=== PATIENT | female | born 1970 | race Caucasian/White ===

== ENCOUNTER → 2016-11-30 | Outpatient (CLI) | payer MEDICAID ==
--- NOTE | 2016-11-30 12:57 | MA ---
Diagnostic Digital Mammogram With iCAD Analysis Clinical Indications: Evaluate palpable area in the outer posterior left breast. Technique: Standard cephalocaudal projections are obtained. Digital breast tomosynthesis was performe d in the MLO projection with reconstruction at 1.0 mm slice thickness and composite MLO views reconst ructed. A skin marker is placed on the palpable area. This examination is processed by the [place] [employer] compu ter aided detection system. Comparison: January 2014 and October 2012. Breast density: Type C: Heterogeneously dense. Findings: CAD was reviewed. In the posterior left breast at approximately the 3 o'clock position ther e is a partially obscured 14 mm opacity which would correlate to the palpable abnormality. The right breast is stable in appearance. Impression: Palpable area at 3 o'clock position of the left breast requires further evaluation, BI-RA DS 0.. Recommendation: Targeted left breast ultrasound which will be subsequently performed today. [facility] will send a result letter to the patient. Negative mammography should not preclude additional workup of a clinically suspicious finding. The patient's information is entered into a reminder system with a target due date for her next mammo gram.
--- NOTE | 2016-11-30 13:48 | US ---
Left Breast Ultrasound History: Evaluate palpable lump. Technique: Longitudinal and transverse images were obtained utilizing a 15 MHz transducer. Color Dop pler evaluation is employed for assessment of vascularity. The examination is interpreted in conjunc tion with diagnostic mammography performed earlier today. Findings: The palpable area at the 3 o'clock position of the left breast is easily identified on phys ical examination. Sonographic interrogation demonstrates a large simple cyst measuring 1.3 cm in diam eter. There is debris within the cyst. Additionally, there is extensive fibroglandular prominence in the region and smaller cysts as well as dilated ducts are noted. No suspicious solid abnormality is s een.. Impression: Benign findings when considering mammographic and sonographic assessment, BI-RADS 2. Recommendation: Resume routine mammographic screening in one year as long as physical examination is benign. Findings and follow-up recommendations were reviewed with the patient in detail. [facility] will send a result letter to the patient.
== END ==
LOC: FIMAGING 12:17
PROVIDERS: ATTEND Nurse Practitioner
DX: Z12.39 Encounter for other screening for malignant neoplasm of breast (principal); N63 Unspecified lump in breast
CPT/HCPCS: G0204; G0279